=== PATIENT | female | born 2000 | race Caucasian/White ===

== ENCOUNTER → 2021-01-02 17:15 | Observation (INO) ==
[2021-01-02 15:00] VITALS: BP 109/67
[2021-01-02 15:27] LABS: Bilirubin,Urine Negative (Negative); Blood,Urine Negative (Negative); Clarity,Urine Clear (Clear); Color,Urine Colorless (Yellow); Glucose,Urine (UA) Normal (Normal); Ketones,Urine Negative (Negative); Leukocyte Esterase,Urine Negative (Negative); Nitrite,Urine Negative (Negative); Protein,Urine Negative (Neg-Trace); Specific Gravity,Urine 1.006 (1.010-1.025); Urobilinogen,Urine Normal (Normal)
[2021-01-02 15:28] LABS: Basophils # 0.1 K/mcL (0.0-0.2); Basophils % 0.3 %; Eosinophils # 0.2 K/mcL (0.0-0.6); Eosinophils % 1.5 %; Hematocrit 31.1 % (35.3-44.9); Hemoglobin 10.1 g/dL (11.5-15.4); Immature Granulocytes % 1.3 % (0-4); Lymphocytes % 14.1 %; Mean Corpuscular HGB Conc 32.5 g/dL (31.6-35.5); Mean Corpuscular Hemoglobin 29.8 pg (28.0-33.3); Mean Corpuscular Volume 91.7 fL (83.0-100.0); Mean Platelet Volume 10.2 fL (9.4-12.4); Neutrophils # 10.9 K/mcL (1.6-8.9); Platelet Count 269 K/mcL (140-400); Red Blood Count 3.39 M/mcL (3.82-4.97); Red Cell Distribution Width 12.4 % (11.5-14.5); Segmented Neutrophils % 75.8 %; White Blood Count 14.3 K/mcL (4.3-11.1)
[2021-01-02 15:31] LABS: Protein/Creatinine Ratio,Urine 0.24 mg/mg (0.00-0.20)
[2021-01-02 15:39] LABS: Alanine Aminotransferase 14 Units/L (7-52); Aspartate Amino Transferase 14 Units/L (13-39); BUN/Creatinine Ratio 11 (6-26); Blood Urea Nitrogen 5 mg/dL (6-20); Lactate Dehydrogenase 126 Units/L (140-271); Uric Acid 3.3 mg/dL (2.3-7.6); eGFR For African Americans > 60 (> 60); eGFR For Non-African Americans > 60 (> 60)
[~2021-01-02 17:15] MED LIST: Ringers Solution, Lactated 1,000 ML IVC SCH
== END | disposition home or self-care (01) ==
LOC: 1NENULAB
PROVIDERS: ADMIT Obstetrics & Gynecology; ATTEND Obstetrics & Gynecology

== ENCOUNTER → 2021-02-04 00:50 | Observation (INO) | END | disposition home or self-care (01) | LOC: 1NENULAB | PROVIDERS: ADMIT Obstetrics & Gynecology; ATTEND Obstetrics & Gynecology ==

== ENCOUNTER → 2021-02-14 13:45 | Observation (INO) | END | disposition home or self-care (01) | LOC: 1NENULAB | PROVIDERS: ADMIT Student in an Organized Health Care Education/Training Program; ATTEND Student in an Organized Health Care Education/Training Program ==

== ENCOUNTER 2021-02-15 02:49 | Inpatient (IN) ==
[2021-02-15] MEDS ORDERED: Metoclopramide 10 MG/2 ML VIAL IVP PRN (02:53)
[2021-02-15] MEDS ORDERED: Ondansetron 4 MG/2 ML VIAL IVP PRN (02:53)
[2021-02-15] MEDS ORDERED: Naloxone 0.4 MG/ML INJ IVP PRN (02:53)
[2021-02-15] MEDS ORDERED: *HR* Nalbuphine 10 MG/ML AMPUL IV PRN (02:53)
[2021-02-15] MEDS ORDERED: Famotidine 20 MG/2 ML VIAL IVP PRN (02:53)
[2021-02-15] MEDS ORDERED: Ringers Solution, Lactated 1,000 ML IVC SCH (03:00)
[2021-02-15 03:25] LABS: Basophils # 0.1 K/mcL (0.0-0.2); Basophils % 0.3 %; Eosinophils # 0.2 K/mcL (0.0-0.6); Eosinophils % 1.2 %; Hematocrit 34.5 % (35.3-44.9); Lymphocytes # 2.7 K/mcL (0.6-4.6); Lymphocytes % 13.7 %; Mean Corpuscular HGB Conc 31.9 g/dL (31.6-35.5); Mean Corpuscular Hemoglobin 28.8 pg (28.0-33.3); Mean Corpuscular Volume 90.3 fL (83.0-100.0); Mean Platelet Volume 10.6 fL (9.4-12.4); Monocytes # 1.4 K/mcL (0.0-1.3); Neutrophils # 15.1 K/mcL (1.6-8.9); Platelet Count 346 K/mcL (140-400); Red Blood Count 3.82 M/mcL (3.82-4.97); Red Cell Distribution Width 13.4 % (11.5-14.5); Segmented Neutrophils % 76.8 %; White Blood Count 19.7 K/mcL (4.3-11.1)
[2021-02-15] MEDS ORDERED: Epidural Premix (fent/bupiv) 110 ML EP ONE (03:36)
[2021-02-15 04:07] LABS: Adenovirus Not Detected (Not Detect); Bordetella Pertussis Not Detected (Not Detect); Chlamydophila pneumoniae Not Detected (Not Detect); Coronavirus 229E Not Detected (Not Detect); Coronavirus HKU1 Not Detected (Not Detect); Coronavirus NL63 Not Detected (Not Detect); Coronavirus OC43 Not Detected (Not Detect); Human Metapneumovirus Not Detected (Not Detect); Human Rhinovirus/Enterovirus Not Detected (Not Detect); Influenza A Subtype 2009 H1 Not Detected (Not Detect); Influenza B Not Detected (Not Detect); Mycoplasma pneumoniae Not Detected (Not Detect); Parainfluenza Virus 1 Not Detected (Not Detect); Parainfluenza Virus 2 Not Detected (Not Detect); Parainfluenza Virus 3 Not Detected (Not Detect); Parainfluenza Virus 4 Not Detected (Not Detect); Respiratory Syncytial Virus Not Detected (Not Detect); SARS-CoV-2 Not Detected (Not Detect)
[2021-02-15] MEDS ORDERED: EPHEDrine 50 MG/ML VIAL IVP PRN (04:10)
[2021-02-15] MEDS ORDERED: Epidural Premix (fent/bupiv) 110 ML EP SCH (04:15)
[2021-02-15] MEDS ORDERED: Oxytocin 20 units/ LR 1000 mL 20 UNIT/1,000 ML BAG IVC ONE ×3 (07:02→14:51)
[2021-02-15] MEDS ORDERED: *HR* Ropivacaine/PF 0.5% 20 ML VIAL ONE (09:43)
[2021-02-15] MEDS ORDERED: *HR* FentaNYL (PF) 100 MCG/2 ML VIAL ONE (09:44)
[2021-02-15] MEDS ORDERED: Lidocaine 1% 20 ML MDV ONE (13:16)
[2021-02-15] MEDS ORDERED: Rho Immune Globulin 1,500 UNIT SYRINGE IM PRN (14:25)
[2021-02-15] MEDS ORDERED: Oxytocin 20 units/ LR 1000 mL 20 UNIT/1,000 ML BAG IVC SCH (14:25)
[2021-02-15] MEDS ORDERED: Measles/Mumps/Rubella Vacc 0.5 ML VIAL SQ PRN (14:25)
[2021-02-15] MEDS ORDERED: miSOPROStoL 100 MCG TABLET RC ONE (14:27)
[2021-02-15] MEDS: Acetaminophen 325 MG TABLET PO PRN (17:09)
[2021-02-15 18:01] LABS: Hematocrit 21.7 % (35.3-44.9)
[2021-02-15 18:04] LABS: Hemoglobin 6.9 g/dL (11.5-15.4)
[2021-02-15] MEDS ORDERED: 0.9 % Sodium Chloride 250 ML ONE (19:37)
[2021-02-16] MEDS: Ibuprofen 600 MG TABLET PO PRN ×2 (00:16→09:23)
[2021-02-16] MEDS: Acetaminophen 325 MG TABLET PO PRN (04:12)
[2021-02-16 04:40] LABS: Basophils # 0.1 K/mcL (0.0-0.2); Basophils % 0.3 %; Eosinophils # 0.1 K/mcL (0.0-0.6); Eosinophils % 0.6 %; Hematocrit 26.9 % (35.3-44.9); Immature Granulocytes % 1.1 % (0-4); Lymphocytes # 2.4 K/mcL (0.6-4.6); Lymphocytes % 12.9 %; Mean Corpuscular HGB Conc 32.7 g/dL (31.6-35.5); Mean Corpuscular Hemoglobin 29.5 pg (28.0-33.3); Mean Corpuscular Volume 90.3 fL (83.0-100.0); Mean Platelet Volume 10.6 fL (9.4-12.4); Monocytes # 1.4 K/mcL (0.0-1.3); Monocytes % 7.6 %; Neutrophils # 14.7 K/mcL (1.6-8.9); Platelet Count 205 K/mcL (140-400); Red Blood Count 2.98 M/mcL (3.82-4.97); Red Cell Distribution Width 13.6 % (11.5-14.5); Segmented Neutrophils % 77.5 %; White Blood Count 18.9 K/mcL (4.3-11.1)
[2021-02-16 04:44] LABS: Hemoglobin 8.8 g/dL (11.5-15.4)
[2021-02-16 08:04] VITALS: BP 100/63
[2021-02-16] MEDS ORDERED: Prenatal Vit/FA 1 EACH TABLET PO SCH (09:00)
== END 2021-02-16 14:28 | disposition home or self-care (01) | DRG 806 ==
LOC: 1NENULAB 02:49 → 1NENUOBS 15:42
PROVIDERS: ADMIT Student in an Organized Health Care Education/Training Program; ATTEND Student in an Organized Health Care Education/Training Program